=== PATIENT | female | born 1940 | race African-American/Black ===

== ENCOUNTER 2020-07-26 17:48 | Inpatient (IN) | payer MEDICARE, OTHER ==
[~2020-07-26] VITALS: Ht 157.5 cm; Wt 120.7 kg
[2020-07-26] MEDS ORDERED: MORPHINE SULFATE 4 MG/ML SYR/VIAL IV ONE (20:45)
[2020-07-26] MEDS ORDERED: ONDANSETRON HCL 4 MG/2 ML VIAL IV ONE ×2 (20:45→23:00)
[2020-07-26] MEDS ORDERED: SODIUM CHLORIDE 0.9% 1,000 ML IV ONE ×2 (20:45→23:00)
[2020-07-26] MEDS ORDERED: HYDROmorphone HCL 2 MG/ML VL IV ONE (23:00)
[2020-07-26 23:53] LABS: Basophils # (auto) 0 10 ^3/uL (0-0.2); Basophils % (auto) 0.4 % (0.0-2.0); Eosinophils # (auto) 0 10 ^3/uL (0-0.8); Eosinophils % (auto) 0.1 % (0.0-7.0); Hematocrit 30.1 % (36.0-46.0); Hemoglobin 9.7 g/dL (12.2-16.2); Lymphocytes # (auto) 0.6 10 ^3/uL (0.4-5.4); Lymphocytes % (auto) 8.3 % (10.0-50.0); Mean Corpuscular Hgb Conc. 32.1 g/dL (32.0-36.0); Mean Corpuscular Volume 93.3 fL (80.0-100.0); Monocytes # (auto) 0.3 10 ^3/uL (0-1.3); Monocytes % (auto) 3.9 % (0.0-12.0); Neutrophils # (auto) 6.4 10 ^3/uL (1.6-8.6); Neutrophils % (auto) 87.3 % (37.0-80.0); Platelet Count (auto) 334 10^3/uL (140-450); Red Blood Cells 3.22 10^6/uL (4.0-5.20); Red Cell Distribution Width 15.1 % (11.8-14.3); White Blood Cell 7.3 10^3/uL (4.4-10.8)
[2020-07-27 00:13] LABS: INR 0.97 (0.9-1.15); Partial Thromboplastin Time 22.1 sec (23.0-31.2)
[2020-07-27 00:14] LABS: Alanine Aminotransferase 15 U/L (13-56); Albumin 3.5 g/dL (3.4-5.0); Anion Gap 8 (5-15); Aspartate Aminotransferase 10 U/L (15-37); Blood Urea Nitrogen 31 mg/dL (7-18); Calcium 9.2 mg/dL (8.5-10.1); Carbon Dioxide 24 mmol/L (21-32); Chloride 105 mmol/L (98-107); GFR African American 54 mL/min; GFR Non-African American 45 mL/min; Glucose 150 mg/dL (74-106); Lipase 350 U/L (73-393); Potassium 3.8 mmol/L (3.5-5.1); Sodium 137 mmol/L (136-145)
[2020-07-27 00:19] LABS: Alkaline Phosphatase 117 U/L (45-117); Bilirubin, Total 0.3 mg/dL (0.2-1.0); Total Protein 7.4 g/dL (6.4-8.2)
[2020-07-27] MEDS: SODIUM CHLORIDE 0.9% 1,000 ML IV SCH ×3 (00:53→18:20)
--- NOTE | 2020-07-27 04:30 | NUR ---
[facility] admit from [facility] admitted to [facility]. Patient oriented to Tammie Adams, primary RN, unit, room, bed, and unit policies regarding patient care and visiting hours. Patient weighed by bed scale and encouraged to call if they need something. All questions and concerns addressed, patient verbalized understanding.
[2020-07-27] MEDS: MORPHINE SULFATE 4 MG/ML SYR/VIAL IV PRN ×3 (04:47→20:45)
[2020-07-27 05:14] VITALS: BP 117/73
--- NOTE | 2020-07-27 07:40 | NUR ---
Opening Shift Note Assumed care of patient. Pt sleeping in bed. No S/S of distress/SOB or pain. Call light within reach, bed in lowest position and side rails up x2. Will continue to monitor for changes Q1hr and PRN.
[2020-07-27 08:00] VITALS: BP 136/73
[2020-07-27] MEDS: PANTOPRAZOLE 40 MG/10 ML VIAL INJ IV SCH (08:44)
[2020-07-27 09:00] VITALS: BP 136/73
--- NOTE | 2020-07-27 12:34 | NUR ---
Patient off unit to pre-op via hospital bed respirations even and unlabored on 2 lpm nc, no distress noted. IV site is patent with no s/s of infiltration or leaking.
[2020-07-27 13:00] VITALS: BP 133/73
[2020-07-27] MEDS ORDERED: LIDOCAINE W/ EPINEPHRINE 1% 20ML VIAL ONE (13:00)
[2020-07-27] MEDS ORDERED: BUPIVACAINE 0.25% INJ 50ML VIAL ONE (13:00)
[2020-07-27] MEDS ORDERED: LIDOCAINE 1% HCL (LOCAL ANESTH.) INJ 20ML MDV ONE (13:00)
[2020-07-27] MEDS ORDERED: ceFAZolin 1GM/50ML 50 ML IV ONE (13:02)
[2020-07-27] MEDS ORDERED: MIDAZOLAM HCL 1MG/1ML-2 ML VIAL ONE (13:16)
[2020-07-27] MEDS ORDERED: GLYCOPYRROLATE 0.2 MG/ML 1ML VIAL ONE (13:16)
[2020-07-27] MEDS ORDERED: MEPERIDINE HCL (25 MG/ML) 1ML VIAL ONE (13:16)
[2020-07-27] MEDS ORDERED: fentaNYL CITRATE 100 MCG/2 ML VL ONE (13:16)
[2020-07-27] MEDS ORDERED: ROCURONIUM 10MG/ML 10ML VIAL IV ONE (13:16)
[2020-07-27] MEDS ORDERED: ONDANSETRON HCL 4 MG/2 ML VIAL ONE (13:16)
[2020-07-27] MEDS ORDERED: DexAMETHasone SOD PHOS 10MG/1ML VIAL INJ ONE (13:16)
[2020-07-27] MEDS ORDERED: NEOSTIGMINE 1 MG/ML INJ (10mg/10ML VIAL) ONE (13:16)
[2020-07-27] MEDS ORDERED: PROPOFOL 10 MG/ML 20 ML IV ONE (13:16)
[2020-07-27] MEDS ORDERED: SODIUM CHLORIDE LOCK 10 ML ONE (13:16)
[2020-07-27] MEDS ORDERED: ACCU-CHEK COMFORT CURVE STRIP VI ONE (13:30)
[2020-07-27] MEDS ORDERED: MORPHINE SULFATE 4 MG/ML SYR/VIAL IV PRN (13:30)
[2020-07-27] MEDS ORDERED: HYDROmorphone HCL 2 MG/ML VL IV PRN (13:30)
[2020-07-27] MEDS ORDERED: METOCLOPRAMIDE HCL 5MG/ml INJ 2ml VIAL IV PRN (13:30)
--- NOTE | 2020-07-27 16:10 | NUR ---
Patient back on unit via hospital bed respirations even and unlabored on 2 lpm NC, no distress noted. Patient reports 10/10 pain in the ABD. Incision to the midline ABD. Dressing is clean, dry and intact. ABD is soft to palpitation. Fall precautions in place with call light within reach; bed alarm on for safety.
[2020-07-27 16:56] VITALS: BP 149/72
--- NOTE | 2020-07-27 18:04 | NUR ---
Paged Dr. Philippe RE: pain management Patient reports moderate pain. PRN pain medication not available.
--- NOTE | 2020-07-27 19:03 | NUR ---
Closing note/Care endorsed Patient resting in bed with even and unlabored respirations on 2 LPM NC, no distress noted. Dressing to the abdomen is clean, dry and intact. Patient educated on pressure injury prevention. Patient verbalized understanding. Fall precautions in place with call light within reach; bed alarm on for safety.
--- NOTE | 2020-07-27 19:05 | NUR ---
Care endorsed to ZACHARIAH Chino.
[2020-07-27] MEDS: ONDANSETRON HCL 4 MG/2 ML VIAL IV PRN (20:46)
[2020-07-27 22:00] VITALS: BP 154/61
[2020-07-28] MEDS: SODIUM CHLORIDE 0.9% 1,000 ML IV SCH ×3 (00:17→23:37)
[2020-07-28] MEDS: MORPHINE SULFATE 4 MG/ML SYR/VIAL IV PRN ×2 (01:50→07:06)
[2020-07-28 05:00] VITALS: BP 138/80
--- NOTE | 2020-07-28 05:05 | NUR ---
PT IV REMOVED R/T INFILTRATION, SITE SWOLLEN AND SORE.
[2020-07-28 06:19] LABS: Basophils # (auto) 0 10 ^3/uL (0-0.2); Basophils % (auto) 0.1 % (0.0-2.0); Eosinophils # (auto) 0 10 ^3/uL (0-0.8); Hematocrit 28.7 % (36.0-46.0); Hemoglobin 9.1 g/dL (12.2-16.2); Lymphocytes # (auto) 0.6 10 ^3/uL (0.4-5.4); Lymphocytes % (auto) 6.8 % (10.0-50.0); Mean Corpuscular Hemoglobin 30.1 pg (28.0-32.0); Mean Corpuscular Hgb Conc. 31.9 g/dL (32.0-36.0); Mean Corpuscular Volume 94.3 fL (80.0-100.0); Monocytes # (auto) 0.5 10 ^3/uL (0-1.3); Neutrophils # (auto) 8.3 10 ^3/uL (1.6-8.6); Neutrophils % (auto) 88.1 % (37.0-80.0); Platelet Count (auto) 325 10^3/uL (140-450); Red Blood Cells 3.04 10^6/uL (4.0-5.20); Red Cell Distribution Width 14.7 % (11.8-14.3); White Blood Cell 9.5 10^3/uL (4.4-10.8)
[2020-07-28 06:40] LABS: Calcium 8.7 mg/dL (8.5-10.1); Potassium 4.5 mmol/L (3.5-5.1)
[2020-07-28 06:42] LABS: BUN/Creatinine Ratio 20.4
--- NOTE | 2020-07-28 07:00 | NUR ---
OPENING SHIFT NOTE Assumed care of patient from [employer] worker RN. Patient is alert and oriented x4, no signs of distress noted, patient denies pain. She was updated on the plan of care and verbalized understanding. Patient has a midline incision, dressing is clear dry and intact. abdominal binder in place. Bed is locked, in the lowest position, side rails up x2 and call light is in reach. She was encouraged to call for assistance as needed.
[2020-07-28] MEDS: ONDANSETRON HCL 4 MG/2 ML VIAL IV PRN (07:06)
[2020-07-28 09:00] VITALS: BP 127/85
[2020-07-28] MEDS: PANTOPRAZOLE 40 MG/10 ML VIAL INJ IV SCH (10:00)
--- NOTE | 2020-07-28 10:19 | NUR ---
GEOVANNA AT BEDSIDE Updated on the patient status. Plan of care was discussed and she verbalized understanding. New orders for PT to work with the patient, Clear liquid diet and advance as tolerated.
[2020-07-28] MEDS ORDERED: HYDROcodone-ACET 5/325MG TAB PO PRN (12:45)
[2020-07-28 13:00] VITALS: BP 143/69
[2020-07-28 16:09] VITALS: BP 127/63
[2020-07-28] MEDS: HYDROcodone-ACET 5/325MG TAB PO PRN (18:06)
--- NOTE | 2020-07-28 19:30 | NUR ---
Opening Shift Note Assumed care of patient, awake and alert. No S/S of distress/SOB or pain. Safety measures maintained by keeping the bed locked in lowest position, 2 side rails up, personal items and call light within reach. Instructed on POC and to call for assist PRN, will continue to monitor for changes Q1hr and PRN.
[2020-07-28 23:04] VITALS: BP 115/76
--- NOTE | 2020-07-28 23:48 | NUR ---
Assumed care of patient. Patient asleep with bed in the lowest possible position and call light within reach. Will continue care of patient.
[2020-07-29] MEDS: HYDROcodone-ACET 5/325MG TAB PO PRN ×3 (00:43→12:03)
[2020-07-29 05:00] VITALS: BP 142/75
--- NOTE | 2020-07-29 07:54 | NUR ---
Opening Shift Note Assumed care of patient, awake and alert. No S/S of distress/SOB or pain. Instructed on POC and to call for assist PRN, will continue to monitor for changes Q1hr and PRN. Fall precautions in place per safety protocol.
[2020-07-29 09:00] VITALS: BP 139/57
--- NOTE | 2020-07-29 10:09 | NUR ---
Hospitalist MD Long at bedside, aware of patient status. Per MD Long advance patient to soft diet, change IV Protonix to PO and if patient tolerated soft diet, then patient may be discharged after lunch, Will carry out new orders and cont to monitor patient.
[2020-07-29] MEDS ORDERED: PANTOPRAZOLE 40 MG TAB PO ONE (10:15)
--- NOTE | 2020-07-29 12:30 | NUR ---
Diet Patient tolerated diet well. and has been cleared by MD Philippe for discharge. Will proceed with DC orders at this time.
[2020-07-29 13:00] VITALS: BP 149/91
[2020-07-29 13:24] VITALS: BP 139/57
--- NOTE | 2020-07-29 13:49 | NUR ---
Discharge instructions given as ordered. Encourage to follow up with PMD as instructed. All questions and concerns addressed. Patient verbalized understanding. Medication reconciliation form completed and copy given to patient. Patient taken to vehicle via wheelchair with all personal belongings, accompanied by staff. No distress noted at time of departure.
[2020-07-30] MEDS ORDERED: PANTOPRAZOLE 40 MG TAB PO SCH (10:00)
== END 2020-07-29 14:00 | disposition home or self-care (01) | DRG 354 ==
LOC: ER 17:49 → OVERFLOW 17:50 → WEST WING 07-27 06:33
PROVIDERS: ADMIT Nurse Practitioner; ATTEND Family Medicine
PROC: 0WQF0ZZ Repair Abdominal Wall, Open Approach (ICD-10-PCS; principal; 2020-07-27 13:41)
DX: K42.0 Umbilical hernia with obstruction, without gangrene (principal); Z68.42 Body mass index [BMI] 45.0-49.9, adult; E66.01 Morbid (severe) obesity due to excess calories; R73.03 Prediabetes; N18.30 Chronic kidney disease, stage 3 unspecified; I12.9 Hypertensive chronic kidney disease with stage 1 through stage 4 chronic kidney disease, or unspecified chronic kidney disease; J45.909 Unspecified asthma, uncomplicated; Z20.828 Contact with and (suspected) exposure to other viral communicable diseases; K43.9 Ventral hernia without obstruction or gangrene; K44.9 Diaphragmatic hernia without obstruction or gangrene; M19.90 Unspecified osteoarthritis, unspecified site; M47.816 Spondylosis without myelopathy or radiculopathy, lumbar region; Z90.710 Acquired absence of both cervix and uterus; K66.0 Peritoneal adhesions (postprocedural) (postinfection)
CPT/HCPCS: 36415; 71045; 74176; 80048; 80053; 83605; 83690; 84484; 85025; 85610; 85730; 87426; 93005; 93306; 96361; 96374; 96375; C9113; G0378; J0690; J1100; J2001; J2250; J2405; J2704; J3490

== ENCOUNTER 2020-08-20 11:52 | Inpatient (IN) | payer MEDICARE, OTHER ==
[~2020-08-20] VITALS: Ht 167.6 cm; Wt 126.6 kg
[2020-08-20 14:40] LABS: Hemoglobin 9.2 g/dL (12.2-16.2); Mean Corpuscular Hemoglobin 28.3 pg (28.0-32.0); Red Blood Cells 3.24 10^6/uL (4.0-5.20)
[2020-08-20 14:42] LABS: Hematocrit 28.7 % (36.0-46.0); Mean Corpuscular Volume 88.5 fL (80.0-100.0); Platelet Count (auto) 694 10^3/uL (140-450); White Blood Cell 7.2 10^3/uL (4.4-10.8)
[2020-08-20 14:53] LABS: Band Neutrophils % (manual) 0; Basophils % (manual) 0 (0.0-2.0); Blast Cells 0; Metamyelocytes % 0; Myelocytes % 0; Promyelocytes % 0; Reactive Lymphocytes 0
[2020-08-20 15:04] LABS: Albumin 2.1 g/dL (3.4-5.0); Anion Gap 6 (5-15); Blood Urea Nitrogen 17 mg/dL (7-18); Calcium 8.2 mg/dL (8.5-10.1); Carbon Dioxide 26 mmol/L (21-32); Chloride 107 mmol/L (98-107); Glucose 110 mg/dL (74-106); Magnesium 2.1 mg/dL (1.6-2.6); Potassium 4.2 mmol/L (3.5-5.1); Sodium 139 mmol/L (136-145)
[2020-08-20 15:27] LABS: Alanine Aminotransferase 219 U/L (13-56); Alkaline Phosphatase 97 U/L (45-117); Aspartate Aminotransferase 229 U/L (15-37); BUN/Creatinine Ratio 15.6; Bilirubin, Total 0.2 mg/dL (0.2-1.0); GFR African American 62 mL/min; GFR Non-African American 52 mL/min; Total Protein 7.5 g/dL (6.4-8.2)
[2020-08-20 20:08] LABS: Eosinophils % (manual) 8 (0-7); Lymphocytes % (manual) 18 (10.0-50.0); Monocytes % (manual) 19 (0-12)
[2020-08-20] MEDS ORDERED: ACETAMINOPHEN 500 MG TAB PO ONE ×2 (22:35→22:45)
[2020-08-20] MEDS ORDERED: ONDANSETRON HCL 4 MG/2 ML VIAL IV PRN (23:30)
[2020-08-20] MEDS ORDERED: ACETAMINOPHEN 325 MG TAB PO PRN (23:30)
[2020-08-20] MEDS ORDERED: HYDROcodone-ACET 5/325MG TAB PO PRN (23:30)
[2020-08-20] MEDS ORDERED: NITROGLYCERIN 0.4 MG SL TAB SL PRN (23:30)
[2020-08-20] MEDS ORDERED: DOCUSATE SOD 100 MG CAP PO PRN (23:30)
[2020-08-20] MEDS ORDERED: MORPHINE SULF INJ 2 MG/ML SYRINGE 1ML IV PRN (23:30)
[2020-08-21] MEDS ORDERED: IPRATROPIUM BROM 0.5 MG/2.5ML INH SOL NEB SCH (02:00)
[2020-08-21] MEDS ORDERED: ENOXAPARIN SOD 60 MG/0.6 ML SYRINGE SC SCH (02:00)
[2020-08-21] MEDS ORDERED: ALBUTEROL SULF 2.5 MG/0.5ML(0.5%) NEB SOLN NEB SCH (02:00)
[2020-08-21] MEDS: SODIUM CHLOR 0.9% PF (SALINE LOCK) 10ML VIAL/SYR IV SCH ×2 (06:00→13:42)
[2020-08-21] MEDS ORDERED: methylPREDNISolone SOD SUCC 40 MG/ML VL IV SCH (06:00)
[2020-08-21] MEDS: ASCORBIC ACID 500 MG TAB PO SCH (08:39)
[2020-08-21] MEDS: ZINC SULFATE 220mg CAP or TAB PO SCH (08:39)
[2020-08-21] MEDS ORDERED: REMDESIVIR PER PHARMACY 0 ML IV SCH (09:45)
[2020-08-21] MEDS: AZITHROMYCIN 500MG/D5WorNS 250ml IV SCH (10:00)
[2020-08-21] MEDS ORDERED: MORPHINE SULF INJ 2 MG/ML SYRINGE 1ML IV PRN (10:00)
[2020-08-21] MEDS ORDERED: HYDROcodone-ACET 5/325MG TAB PO PRN (10:00)
[2020-08-21] MEDS ORDERED: ENOXAPARIN SOD 40 MG/0.4 ML SYRINGE SC SCH (10:00)
[2020-08-21] MEDS ORDERED: MULTIPLE VITAMIN TAB PO SCH (10:00)
[2020-08-21] MEDS ORDERED: IPRATROPIUM BROMIDE HFA AER IN PRN (10:00)
[2020-08-21] MEDS: ENOXAPARIN SOD 120 MG/0.8 ML SYRINGE SC SCH (10:00)
[2020-08-21] MEDS: FUROSEMIDE 40 MG/4 ML VIAL IV SCH (10:00)
[2020-08-21 10:17] LABS: Hematocrit 29.4 % (36.0-46.0); Hemoglobin 9.3 g/dL (12.2-16.2)
[2020-08-21 10:20] LABS: Mean Corpuscular Hemoglobin 28.9 pg (28.0-32.0); Mean Corpuscular Hgb Conc. 31.7 g/dL (32.0-36.0); Platelet Count (auto) 649 10^3/uL (140-450); Red Blood Cells 3.23 10^6/uL (4.0-5.20); White Blood Cell 6.7 10^3/uL (4.4-10.8)
[2020-08-21 10:31] LABS: Basophils % (manual) 0 (0.0-2.0); Blast Cells 0; Promyelocytes % 0; Reactive Lymphocytes 0
[2020-08-21 10:49] LABS: Potassium 4.7 mmol/L (3.5-5.1)
[2020-08-21] MEDS: BUDESONIDE (INHALATION) 180 MCG IH IN SCH ×2 (10:52→22:44)
[2020-08-21 10:55] LABS: Albumin 2.1 g/dL (3.4-5.0); BUN/Creatinine Ratio 21.5; Bilirubin, Total 0.2 mg/dL (0.2-1.0); Calcium 8.8 mg/dL (8.5-10.1); Total Protein 7.3 g/dL (6.4-8.2)
[2020-08-21 11:10] LABS: Band Neutrophils % (manual) 3; Eosinophils % (manual) 3 (0-7); Lymphocytes % (manual) 17 (10.0-50.0); Metamyelocytes % 3; Monocytes % (manual) 15 (0-12); Myelocytes % 2
[2020-08-21] MEDS: PANTOPRAZOLE 40 MG/10 ML VIAL INJ IV SCH (11:16)
[2020-08-21] MEDS ORDERED: IOHEXOL 350 MG/ML 100ML IJ ONE (11:16)
[2020-08-22 03:00] VITALS: BP 120/55
[2020-08-22] MEDS: SODIUM CHLOR 0.9% PF (SALINE LOCK) 10ML VIAL/SYR IV SCH ×3 (03:00→15:03)
--- NOTE | 2020-08-22 03:00 | NUR ---
PATIENT CURRENTLY LYING IN BED. SHE IS ON 2LNC SATTING AT 97%. SHE COMPLAINS OF SHORTNESS OF BREATH MOSTLY WITH EXERTION. SHE ALSO HAS A DVT TO THE RIGHT LEG WHICH IS SWOLLEN WITH NON PITTING EDEMA. SHE HAS NO PAIN AT THIS MOMENT OTHERWISE. WILL CONTINUE TO MONITOR.
[2020-08-22] MEDS: ENOXAPARIN SOD 120 MG/0.8 ML SYRINGE SC SCH ×2 (03:01→09:40)
[2020-08-22] MEDS: ASCORBIC ACID 500 MG TAB PO SCH ×2 (03:01→09:40)
[2020-08-22 06:27] VITALS: BP 133/96
[2020-08-22 07:54] LABS: Eosinophils # (auto) 0.3 10 ^3/uL (0-0.8); Hematocrit 27.9 % (36.0-46.0); Hemoglobin 8.8 g/dL (12.2-16.2); Monocytes # (auto) 0.9 10 ^3/uL (0-1.3); Neutrophils # (auto) 4.1 10 ^3/uL (1.6-8.6); Neutrophils % (auto) 58.5 % (37.0-80.0)
[2020-08-22] MEDS: BUDESONIDE (INHALATION) 180 MCG IH IN SCH (07:54)
[2020-08-22 07:56] LABS: Basophils # (auto) 0.1 10 ^3/uL (0-0.2); Basophils % (auto) 0.8 % (0.0-2.0); Eosinophils % (auto) 3.9 % (0.0-7.0); Lymphocytes # (auto) 1.6 10 ^3/uL (0.4-5.4); Lymphocytes % (auto) 23.4 % (10.0-50.0); Mean Corpuscular Hemoglobin 28.1 pg (28.0-32.0); Mean Corpuscular Hgb Conc. 31.6 g/dL (32.0-36.0); Mean Corpuscular Volume 89.1 fL (80.0-100.0); Monocytes % (auto) 13.4 % (0.0-12.0); Nucleated Red Blood Cells % 0.2 %; Platelet Count (auto) 630 10^3/uL (140-450); Red Blood Cells 3.13 10^6/uL (4.0-5.20); Red Cell Distribution Width 16.8 % (11.8-14.3); White Blood Cell 6.9 10^3/uL (4.4-10.8)
[2020-08-22 08:10] LABS: Calcium 8.7 mg/dL (8.5-10.1); Potassium 4.5 mmol/L (3.5-5.1)
[2020-08-22 08:15] LABS: BUN/Creatinine Ratio 16.7; Bilirubin, Total 0.2 mg/dL (0.2-1.0); Total Protein 7.1 g/dL (6.4-8.2)
[2020-08-22] MEDS ORDERED: cefTRIAXone 1GM/50ML D5W 50 ML IV SCH (09:00)
[2020-08-22] MEDS: ZINC SULFATE 220mg CAP or TAB PO SCH (09:40)
[2020-08-22] MEDS: PANTOPRAZOLE 40 MG/10 ML VIAL INJ IV SCH (09:40)
[2020-08-22] MEDS: FUROSEMIDE 40 MG/4 ML VIAL IV SCH (09:58)
[2020-08-22] MEDS: AZITHROMYCIN 500MG/D5WorNS 250ml IV SCH (11:54)
[2020-08-22] MEDS ORDERED: APIXABAN 5 MG TAB PO STA (15:45)
[2020-08-22 16:00] VITALS: BP 144/86
[2020-08-22] MEDS ORDERED: APIXABAN 5 MG TAB PO ONE (18:00)
[2020-08-22] MEDS ORDERED: APIXABAN 5 MG TAB PO SCH (22:00)
[2020-08-22] MEDS ORDERED: LABETALOL HCL 200 MG TAB PO SCH (22:00)
== END 2020-08-22 18:27 | disposition home or self-care (01) | DRG 177 ==
LOC: ER 11:52 → EDUNIT# 11:52 → TELE 11:53
PROVIDERS: ADMIT Nurse Practitioner Family; ATTEND Nurse Practitioner Family
DX: U07.1 COVID-19 (principal); J12.89 Other viral pneumonia; J96.01 Acute respiratory failure with hypoxia; I50.31 Acute diastolic (congestive) heart failure; J44.0 Chronic obstructive pulmonary disease with (acute) lower respiratory infection; J44.1 Chronic obstructive pulmonary disease with (acute) exacerbation; I13.0 Hypertensive heart and chronic kidney disease with heart failure and stage 1 through stage 4 chronic kidney disease, or unspecified chronic kidney disease; D68.59 Other primary thrombophilia; Z68.42 Body mass index [BMI] 45.0-49.9, adult; I82.431 Acute embolism and thrombosis of right popliteal vein; J45.909 Unspecified asthma, uncomplicated; N18.30 Chronic kidney disease, stage 3 unspecified; D64.9 Anemia, unspecified; E66.01 Morbid (severe) obesity due to excess calories
CPT/HCPCS: 36415; 71045; 71275; 80053; 82728; 83036; 83735; 83880; 84484; 85007; 85025; 85027; 85379; 86141; 87426; 93005; 93970; 94640; C9113; G0378; J0696